=== PATIENT | female | born 1940 | race Caucasian/White ===

== ENCOUNTER 2017-07-03 15:43 | Outpatient (CLI) ==
--- NOTE | 2017-07-03 16:17 | DI ---
Exam: Two x-rays of the right hip. Comparison: None available. Reason for exam: Pain. FINDINGS: No acute fracture or malalignment. The femoral head articulates with the acetabulum. The re is mild degenerative disease with joint space narrowing. Sclerotic changes are seen in the symphy sis pubis. Impression: No acute fracture or dislocation in the right hip.
--- NOTE | 2017-07-03 16:23 | DI ---
EXAM: Lumbar spine, three view. HISTORY: Low back pain. COMPARISON: MRI dated FINDINGS: AP and lateral views of the lumbar spine and a coned down view of the lumbosacral junction .There is a transitional segment at the lumbosacral junction which has been previously labeled L6. T here is curvature spine to the left measuring 14 degrees. The vertebral heights are well maintained. There are no acute or healing fractures. There are no lytic or blastic lesions. Disc narrowing ost eophyte formation is seen at all levels of the spine. There is sclerosis of the spinous processes at all levels. There is no spondylolisthesis or spondylolysis. Heavy aortic calcifications are noted. IMPRESSION: 1. No acute fractures. 2. Degenerative disc disease. 3. Atherosclerotic disease of the aorta. 4. Scoliosis measuring 40 degrees to the left.
== END 2017-07-03 15:44 | disposition home or self-care (01) ==
LOC: RAD 15:43
PROVIDERS: ATTEND Internal Medicine
DX: M25.551 Pain in right hip (principal); M54.5 Low back pain

== ENCOUNTER 2022-05-02 09:09 | Observation (INO) ==
--- NOTE | 2022-05-02 09:21 | ED.PDOC ---
General ED Provider: Dr. GURMEET LORD MD Chief Complaint: Nausea/Vomiting Stated Complaint: Patient presents with nausea, epigastric discomfort and fever for 3 days. Denies emesis, melena, hematemesis, diarrhea, cough, dyspnea, chest pain, headache, body aches, urinary tract symptoms. Time Seen by Provider: 05/02/22 09:19 Mode of Arrival: Walk-In Information Source: Patient Primary Care Provider: LITZY WALL MD Nursing and Triage Documentation Reviewed and Agree: Yes Does patient meet sepsis criteria?: No System Inflammatory Response Syndrome: Not Applicable Sepsis Protocol: For patient's 13 years and over: Temp is 96.8 and below OR 101 and greater Pulse >90 BPM Resp >20/minute Acutely Altered Mental Status Are patient's symptoms suggestive of a new infection, such as: -Pneumonia -Skin, Soft Tissue -Endocarditis -UTI -Bone, Joint Infection -Implantable Device -Acute Abdominal Infection -Wound Infection -Meningitis -Blood Stream Catheter Infection -Unknown Review of Systems Review Of Systems Constitutional: Reports Fever Eyes: Reports No symptoms Ears, Nose, Mouth, Throat: Reports No symptoms Respiratory: Reports No symptoms Cardiac: Reports No symptoms GI: Reports Abdominal pain and Nausea : Reports No symptoms Musculoskeletal: Reports No symptoms Skin: Reports No symptoms Neurological: Reports No symptoms Endocrine: Reports No symptoms Hematologic/Lymphatic: Reports No symptoms All Other Systems: Reviewed and Negative Physical Exam Physical Exam Appearance: Reports No pain distress and Well-nourished Ill-appearing: Mild Pain Distress: None Eyes: Reports JAKY and EOMI ENT: Reports Nose normal and Oropharynx normal Neck: Supple Respiratory: Reports Airway patent, Breath sounds clear, Breath sounds equal and Other (Breath sounds decreased at both bases.) Cardiovascular: Reports RRR, No rub and No murmur GI/: Reports Soft, No masses, Bowel sounds normal, No Organomegaly and Other (Mild epigastric and RUQ tenderness.) Musculoskeletal: Reports Normal strength, ROM intact and No edema Skin: Reports Warm, Dry and Normal color Neurological: Reports Motor intact, Alert and Oriented Psychiatric: Reports Affect appropriate and Mood appropriate Interpretation Radiology Interpretation Radiology Interpretation By: Radiologist Exam Interpreted: Portable CXR (no acute cardiopulmonary findings) Re-Evaluation Re-Evaluation Time of Re-Evaluation: 11:29 Status: Improved Vital Signs Stable: Yes Pain Level: nausea and epigastric distress resolved after GI cocktail Appearance: NAD Physician Notification Case Discussed Physician Notified: Dr Wall Time of Notification: 13:36 Comments: Patient to be admitted as observation Critical Care Note Critical Care Note Total Critical Care Time (mins): 0 Course Course Hematology/Chemistry: 05/02/22 09:35 05/02/22 09:35 Orders, Labs, Meds: Lab Review 05/02/22 05/02/22 05/02/22 09:30 09:30 09:35 WBC 11.20 H RBC 3.70 L Hgb 11.0 L Hct 35.3 L MCV 95.4 MCH 29.7 MCHC 31.2 L RDW Coeff of Minal 13.0 Plt Count 505 H Immature Gran % (Auto) 0.4 Neut % (Auto) 78.9 H Lymph % (Auto) 13.4 [place] % (Auto) 6.4 Eos % (Auto) 0.4 Baso % (Auto) 0.5 Neut # (Auto) 8.8 H Lymph # (Auto) 1.5 [place] # (Auto) 0.7 Eos # (Auto) 0.0 Baso # (Auto) 0.1 Immature Gran # (Auto) 0.0 Sodium Potassium Chloride Carbon Dioxide Anion Gap BUN Creatinine Estimated GFR (MDRD) BUN/Creatinine Ratio Glucose Lactic Acid Calcium Total Bilirubin AST ALT Alkaline Phosphatase Total Protein Albumin Globulin Albumin/Globulin Ratio Lipase Procalcitonin Urine Color Urine Clarity Urine pH Ur Specific [place] Urine Protein Urine Glucose (UA) Urine Ketones Urine Blood Urine Nitrite Urine Bilirubin Urine Urobilinogen Ur Leukocyte Esterase Urine Microscopic RBC Urine Microscopic WBC Ur Squamous Epith Cells Ur Renal Epithelial Cell Urine Bacteria Influ A Molecular Assay Negative by naat Influ B Molecular Assay Negative by naat SARS CoV-2 RNA Rapid WENCESLAO Negative 05/02/22 05/02/22 05/02/22 09:35 09:35 11:15 WBC RBC Hgb Hct MCV MCH MCHC RDW Coeff of Minal Plt Count Immature Gran % (Auto) Neut % (Auto) Lymph % (Auto) [place] % (Auto) Eos % (Auto) Baso % (Auto) Neut # (Auto) Lymph # (Auto) [place] # (Auto) Eos # (Auto) Baso # (Auto) Immature Gran # (Auto) Sodium 141.1 Potassium 3.24 L Chloride 103.2 Carbon Dioxide 28.2 Anion Gap 12.94 BUN 40.3 H Creatinine 1.21 Estimated GFR (MDRD) 43.00 BUN/Creatinine Ratio 33.30 Glucose 127.3 H Lactic Acid 1.10 Calcium 12.00 H Total Bilirubin 0.42 AST 25.9 ALT 18.7 Alkaline Phosphatase 103.5 Total Protein 7.84 Albumin 4.31 Globulin 3.53 Albumin/Globulin Ratio 1.22 Lipase 57.2 Procalcitonin 0.08 Urine Color Urine Clarity Urine pH Ur Specific [place] Urine Protein Urine Glucose (UA) Urine Ketones Urine Blood Urine Nitrite Urine Bilirubin Urine Urobilinogen Ur Leukocyte Esterase Urine Microscopic RBC Urine Microscopic WBC Ur Squamous Epith Cells Ur Renal Epithelial Cell Urine Bacteria Influ A Molecular Assay Influ B Molecular Assay SARS CoV-2 RNA Rapid WENCESLAO 05/02/22 13:10 WBC RBC Hgb Hct MCV MCH MCHC RDW Coeff of Minal Plt Count Immature Gran % (Auto) Neut % (Auto) Lymph % (Auto) [place] % (Auto) Eos % (Auto) Baso % (Auto) Neut # (Auto) Lymph # (Auto) [place] # (Auto) Eos # (Auto) Baso # (Auto) Immature Gran # (Auto) Sodium Potassium Chloride Carbon Dioxide Anion Gap BUN Creatinine Estimated GFR (MDRD) BUN/Creatinine Ratio Glucose Lactic Acid Calcium Total Bilirubin AST ALT Alkaline Phosphatase Total Protein Albumin Globulin Albumin/Globulin Ratio Lipase Procalcitonin Urine Color Yellow Urine Clarity Clear Urine pH 6.0 Ur Specific [place] 1.015 Urine Protein Negative Urine Glucose (UA) Negative Urine Ketones Negative Urine Blood Negative Urine Nitrite Negative Urine Bilirubin Negative Urine Urobilinogen 0.2 Ur Leukocyte Esterase Trace H Urine Microscopic RBC 0-2 Urine Microscopic WBC 5-10 Ur Squamous Epith Cells 0-2 Ur Renal Epithelial Cell 0-2 Urine Bacteria 1+ Influ A Molecular Assay Influ B Molecular Assay SARS CoV-2 RNA Rapid WENCESLAO Orders Category Date Time Status Saline Lock [ED IV/MEDIPORT/POWERPORT] .ONCE EMERGENCY 05/02/22 10:03 Active BLOOD CULTURE (ED ONLY) Stat LAB 05/02/22 11:15 Received CBC W/ AUTO DIFF Stat LAB 05/02/22 09:35 Completed CMP [COMPREHENSIVE METABOLIC PANEL] Stat LAB 05/02/22 09:35 Completed COVID [SARS COV-2 RNA RAPID WENCESLAO] Stat LAB 05/02/22 09:30 Completed FLU A & B MOLECULAR [FLU A/B MOLECULAR] Stat LAB 05/02/22 09:30 Completed LACTIC ACID Stat LAB 05/02/22 11:15 Completed LIPASE Stat LAB 05/02/22 09:35 Completed PROCALCITONIN Stat LAB 05/02/22 09:35 Completed URINALYSIS C & S IF INDICATED Stat LAB 05/02/22 13:10 Completed URINE CULTURE Stat LAB 05/02/22 13:18 Received 0.9 % Sodium Chloride [Saline Flush] MEDS 05/02/22 10:03 Active 1 syr IVF PRN PRN Mag-Al Plus//Lidocaine [Gi Cocktail] MEDS 05/02/22 10:03 Discontinued 30 ml PO ONCE STA Ondansetron [Zofran Odt] MEDS 05/02/22 09:23 Discontinued 4 mg PO ONCE STA Pantoprazole Sodium [Protonix IV] MEDS 05/02/22 11:29 Discontinued 80 mg IVP ONCE STA Potassium Chloride [K-Dur] MEDS 05/02/22 10:03 Discontinued 40 meq PO ONCE STA Sodium Chloride 0.9% [Sodium Chloride] 1,000 ml MEDS 05/02/22 10:03 Discontinued IV BOLUS Sodium Chloride 0.9% [Sodium Chloride] 1,000 ml MEDS 05/02/22 11:55 Discontinued IV BOLUS CXR [CHEST, 1V AP ONLY] Stat RADS 05/02/22 09:23 Completed Medications Generic Name Dose Route Start Last Admin Trade Name Freq PRN Reason Stop Dose Admin Sodium Chloride 1 syr 05/02/22 10:03 05/02/22 11:50 0.9% Sodium Chloride 10 Ml Disp.Syrin IVF 1 syr PRN PRN Administration To flush IV Discontinued Medications Generic Name Dose Route Start Last Admin Trade Name Freq PRN Reason Stop Dose Admin Al Hydroxide/Mg Hydroxide 30 ml 05/02/22 10:03 05/02/22 10:38 Mag-Al Plus//Lidocaine 30 Ml Btl PO 05/02/22 10:04 30 ml ONCE STA Administration Sodium Chloride 1,000 mls @ 1,000 mls/hr 05/02/22 10:03 05/02/22 10:48 Sodium Chloride IV 05/02/22 11:02 1,000 mls/hr BOLUS STA Administration Sodium Chloride 1,000 mls @ 1,000 mls/hr 05/02/22 11:55 05/02/22 11:56 Sodium Chloride IV 05/02/22 12:54 1,000 mls/hr BOLUS STA Administration Ondansetron HCl 4 mg 05/02/22 09:23 05/02/22 09:29 Ondansetron Hcl 4 Mg Tab.Rapdis PO 05/02/22 09:24 4 mg ONCE STA Administration Pantoprazole Sodium 80 mg 05/02/22 11:29 05/02/22 11:50 Pantoprazole Sodium 40 Mg Vial IVP 05/02/22 11:30 80 mg ONCE STA Administration Potassium Chloride 40 meq 05/02/22 10:03 05/02/22 10:36 Potassium Chloride 20 Meq Tab PO 05/02/22 10:04 40 meq ONCE STA Administration Vital Signs: Temp Pulse Resp BP Pulse Ox 05/02/22 09:10 100.9 F H 112 H 18 115/75 94 L Discharge Plan Discharge Patient Disposition: PLACED OBSERVATION Discharge Problem: Nausea, Acute hypokalemia, Hypercalcemia, Gastroesophageal reflux disease, Acute dehydration Prescriptions: No Action meloxicam [Mobic] 15 mg Tablet 15 mg PO DAILY tramadol 50 mg Tablet 50 mg PO TID PRN (Reason: Moderate Pain (Scale Score 5-6)) aspirin 81 mg Tablet 81 mg PO DAILY Centrum Silver Tablet 1 tab PO DAILY Fish Oil 1,000 mg Capsule 1 cap PO DAILY valsartan-hydrochlorothiazide 320-25 mg Tablet 1 tab PO DAILY ascorbate calcium (vitamin C) [Magda-C] 500 mg Tablet 500 mg PO DAILY cranberry extract 250 mg Tablet 250 mg PO DAILY Garlique 5,000 mcg Tablet 5 mg PO DAILY calcium phosphate-vitamin D3 [Citracal-D3 Gummies] 250 mg-12.5 mcg (500 unit) Tablet,Chewable 1 tab PO DAILY Did you review [place] [employer] for ALL controlled substances?: Not Applicable ED Provider: GURMEET LORD Condition: Stable Physician Progress Note: []
[2022-05-02] MEDS ORDERED: ZOFRAN ODT PO STA (09:23)
[2022-05-02 09:41] LABS: BASOPHILS # (AUTO) 0.1 K/uL (0-0.2); BASOPHILS % (AUTO) 0.5 % (0.0-3.0); EOSINOPHILS % (AUTO) 0.4 % (0.0-7.0); HEMATOCRIT 35.3 % (37.0-47.0); IMMATURE GRANULOCYTE % (AUTO) 0.4 % (0.0-5.0); LYMPHOCYTES # (AUTO) 1.5 K/uL (0.60-3.4); LYMPHOCYTES % (AUTO) 13.4 (10.0-50.0); MEAN CORPUSCULAR HEMOGLOBIN 29.7 pg (27.0-31.0); MEAN CORPUSCULAR HGB CONC 31.2 (31.8-35.4); MEAN CORPUSCULAR VOLUME 95.4 fl (81.0-99.0); MONOCYTES # (AUTO) 0.7 K/uL (0.4-2.0); MONOCYTES % (AUTO) 6.4 (0-10); NEUTROPHILS # (AUTO) 8.8 K/ul (2.0-6.9); NEUTROPHILS % (AUTO) 78.9 % (42.2-75.2); PLATELET COUNT 505 10^3/uL (140-440)
[2022-05-02 09:57] LABS: MOLECULAR FLU A NEGATIVE BY NAAT (NEGATIVE); MOLECULAR FLU B NEGATIVE BY NAAT (NEGATIVE)
[2022-05-02 10:00] LABS: ALANINE AMINOTRANSFERASE 18.7 U/L (0-35); ALBUMIN 4.31 g/dL (3.5-5.0); ALKALINE PHOSPHATASE 103.5 U/L (53-141); ASPARTATE AMINO TRANSFERASE 25.9 U/L (14-36); BILIRUBIN,TOTAL 0.42 mg/dL (0.2-1.3); BLOOD UREA NITROGEN 40.3 mg/dL (7-17); CARBON DIOXIDE 28.2 mmol/L (22-30.0); CHLORIDE 103.2 mmol/L (98-107); CREATININE 1.21 mg/dL (0.60-1.30); GLUCOSE 127.3 mg/dL (74-106); LIPASE 57.2 U/L (23-300); POTASSIUM 3.24 mmol/L (3.5-5.1); SODIUM 141.1 mmol/L (134.5-145); TOTAL PROTEIN 7.84 g/dL (6.3-8.2)
[2022-05-02] MEDS ORDERED: SODIUM CHLORIDE 1,000 ML IV STA ×2 (10:03→11:55)
[2022-05-02] MEDS ORDERED: K-DUR PO STA (10:03)
[2022-05-02] MEDS ORDERED: GI COCKTAIL PO STA (10:03)
[2022-05-02 10:22] LABS: SARS COV-2 RNA RAPID NAAT NEGATIVE (NEGATIVE)
--- NOTE | 2022-05-02 10:35 | DI ---
EXAM: Frontal view of the chest. HISTORY: Chest pain. Fever. COMPARISON: Chest radiograph 04/10/2021. FINDINGS: Atherosclerotic calcifications of the aorta. Normal heart size. No acute consolidation. Unchanged biapical scarring. No visible pleural effusion or pneumothorax. No acute osseous abnormality. Severe degenerative changes of the left shoulder. Advanced multilevel spondylosis and scoliosis. Small hiatal hernia. IMPRESSION: No acute process. Atherosclerosis. Small hiatal hernia.
[2022-05-02] MEDS ORDERED: PROTONIX IV IVP STA (11:29)
[2022-05-02 13:16] LABS: BILIRUBIN,URINE Negative (NEGATIVE); CLARITY,URINE Clear (CLEAR); COLOR,URINE Yellow (YELLOW); GLUCOSE, URINE (UA) Negative (NEGATIVE); KETONES,URINE Negative (NEGATIVE); LEUKOCYTE ESTERASE ,URINE Trace (NEGATIVE); NITRITE,URINE Negative (NEGATIVE); PROTEIN,URINE Negative (NEGATIVE); URINE, BLOOD Negative (NEGATIVE); UROBILINOGEN,URINE 0.2 (0.2)
[2022-05-02 13:19] LABS: BACTERIA,URINE 1+ (NOT PRESENT); RENAL EPITHELIAL CELLS,URINE 0-2 (NOT PRESENT); SQUAMOUS EPITHELIAL CELL,UR 0-2 (0-5); URINE RBC, MICROSCOPIC 0-2 (0-2)
--- NOTE | 2022-05-02 13:44 | PCM ---
Chief Complaint Chief Complaint: nausea, epigastric distress History of Present Illness History of Present Illness: Patient presents with nausea, epigastric distress and fever for 3 days. She was found to be dehydrated and hypokalemic. No definitive source of infection identified;patient had temperature of 100.9 upon presentation. Review of Systems Constitutional: Reports Fever Eyes: Reports No symptoms Ears: Reports No symptoms Nose: Reports No symptoms Throat: Reports No symptoms Mouth: Reports No symptoms Respiratory: Reports No symptoms Cardiovascular: Reports No symptoms Gastrointestinal: Reports Nausea and Other (dyspepsia) Genitourinary: Reports No symptoms Neurological: Reports No symptoms Musculoskeletal: Reports No symptoms Skin: Reports No symptoms Immunology: Reports No symptoms Hematology: Reports No symptoms Endocrine: Reports No symptoms Psychiatric: Reports No symptoms Habits: Reports Tobacco use Allergies Allergies Allergy/AdvReac Type Severity Reaction Status Date / Time moxifloxacin [From Avelox] AdvReac Verified 05/02/22 09:15 Medications Medications: Medications Generic Name Dose Route Start Last Admin Trade Name Freq PRN Reason Stop Dose Admin Sodium Chloride 1 syr 05/02/22 10:03 05/02/22 11:50 0.9% Sodium Chloride 10 Ml Disp.Syrin IVF 1 syr PRN PRN Administration To flush IV Body Composition Height: 5 ft 8 in Weight: 62.233 kg Body Mass Index (BMI): 20.8 Vital Signs Temperature: 100.9 F Pulse Rate: 112 Respiratory Rate: 18 Blood Pressure: 115/75 O2 Sat by Pulse Oximetry: 94 Physical Examination Appearance: Reports Ill-appearing, No pain distress, Well-nourished and Other (Alert and in NAD.) Ill-appearing: Mild Pain Distress: None Eyes: Reports JAKY and EOMI ENT: Reports Nose normal, Oropharynx normal and Dry mucosa Neck: Supple Respiratory: Reports Airway patent, Breath sounds clear and Breath sounds equal Cardiovascular: Reports RRR, No rub and No murmur GI/: Reports Soft, No masses, Bowel sounds normal, No Organomegaly and Other (mild epigastric and RUQ tenderness) Musculoskeletal: Reports Normal strength Skin: Reports Warm, Dry and Normal color Neurological: Reports Sensation intact, Motor intact, Alert and Oriented Psychiatric: Reports Affect appropriate and Mood appropriate Lab/Tests/Diagnostic Imaging Lab/Tests/Diagnostic Imaging: Lab Review 05/02/22 05/02/22 05/02/22 09:30 09:30 09:35 WBC 11.20 H RBC 3.70 L Hgb 11.0 L Hct 35.3 L MCV 95.4 MCH 29.7 MCHC 31.2 L RDW Coeff of Minal 13.0 Plt Count 505 H Immature Gran % (Auto) 0.4 Neut % (Auto) 78.9 H Lymph % (Auto) 13.4 [place] % (Auto) 6.4 Eos % (Auto) 0.4 Baso % (Auto) 0.5 Neut # (Auto) 8.8 H Lymph # (Auto) 1.5 [place] # (Auto) 0.7 Eos # (Auto) 0.0 Baso # (Auto) 0.1 Immature Gran # (Auto) 0.0 Sodium Potassium Chloride Carbon Dioxide Anion Gap BUN Creatinine Estimated GFR (MDRD) BUN/Creatinine Ratio Glucose Lactic Acid Calcium Total Bilirubin AST ALT Alkaline Phosphatase Total Protein Albumin Globulin Albumin/Globulin Ratio Lipase Procalcitonin Urine Color Urine Clarity Urine pH Ur Specific [place] Urine Protein Urine Glucose (UA) Urine Ketones Urine Blood Urine Nitrite Urine Bilirubin Urine Urobilinogen Ur Leukocyte Esterase Urine Microscopic RBC Urine Microscopic WBC Ur Squamous Epith Cells Ur Renal Epithelial Cell Urine Bacteria Influ A Molecular Assay Negative by naat Influ B Molecular Assay Negative by naat SARS CoV-2 RNA Rapid WENCESLAO Negative 05/02/22 05/02/22 05/02/22 09:35 09:35 11:15 WBC RBC Hgb Hct MCV MCH MCHC RDW Coeff of M[place] Plt Count Immature Gran % (Auto) Neut % (Auto) Lymph % (Auto) [place] % (Auto) Eos % (Auto) Baso % (Auto) Neut # (Auto) Lymph # (Auto) [place] # (Auto) Eos # (Auto) Baso # (Auto) Immature Gran # (Auto) Sodium 141.1 Potassium 3.24 L Chloride 103.2 Carbon Dioxide 28.2 Anion Gap 12.94 BUN 40.3 H Creatinine 1.21 Estimated GFR (MDRD) 43.00 BUN/Creatinine Ratio 33.30 Glucose 127.3 H Lactic Acid 1.10 Calcium 12.00 H Total Bilirubin 0.42 AST 25.9 ALT 18.7 Alkaline Phosphatase 103.5 Total Protein 7.84 Albumin 4.31 Globulin 3.53 Albumin/Globulin Ratio 1.22 Lipase 57.2 Procalcitonin 0.08 Urine Color Urine Clarity Urine pH Ur Specific [place] Urine Protein Urine Glucose (UA) Urine Ketones Urine Blood Urine Nitrite Urine Bilirubin Urine Urobilinogen Ur Leukocyte Esterase Urine Microscopic RBC Urine Microscopic WBC Ur Squamous Epith Cells Ur Renal Epithelial Cell Urine Bacteria Influ A Molecular Assay Influ B Molecular Assay SARS CoV-2 RNA Rapid WENCESLAO 05/02/22 13:10 WBC RBC Hgb Hct MCV MCH MCHC RDW Coeff of Minal Plt Count Immature Gran % (Auto) Neut % (Auto) Lymph % (Auto) [place] % (Auto) Eos % (Auto) Baso % (Auto) Neut # (Auto) Lymph # (Auto) [place] # (Auto) Eos # (Auto) Baso # (Auto) Immature Gran # (Auto) Sodium Potassium Chloride Carbon Dioxide Anion Gap BUN Creatinine Estimated GFR (MDRD) BUN/Creatinine Ratio Glucose Lactic Acid Calcium Total Bilirubin AST ALT Alkaline Phosphatase Total Protein Albumin Globulin Albumin/Globulin Ratio Lipase Procalcitonin Urine Color Yellow Urine Clarity Clear Urine pH 6.0 Ur Specific [place] 1.015 Urine Protein Negative Urine Glucose (UA) Negative Urine Ketones Negative Urine Blood Negative Urine Nitrite Negative Urine Bilirubin Negative Urine Urobilinogen 0.2 Ur Leukocyte Esterase Trace H Urine Microscopic RBC 0-2 Urine Microscopic WBC 5-10 Ur Squamous Epith Cells 0-2 Ur Renal Epithelial Cell 0-2 Urine Bacteria 1+ Influ A Molecular Assay Influ B Molecular Assay SARS CoV-2 RNA Rapid WENCESLAO Orders Category Date Time Status Saline Lock [ED IV/MEDIPORT/POWERPORT] .ONCE EMERGENCY 05/02/22 10:03 Active BLOOD CULTURE (ED ONLY) Stat LAB 05/02/22 11:15 Received CBC W/ AUTO DIFF Stat LAB 05/02/22 09:35 Completed CMP [COMPREHENSIVE METABOLIC PANEL] Stat LAB 05/02/22 09:35 Completed COVID [SARS COV-2 RNA RAPID WENCESLAO] Stat LAB 05/02/22 09:30 Completed FLU A & B MOLECULAR [FLU A/B MOLECULAR] Stat LAB 05/02/22 09:30 Completed LACTIC ACID Stat LAB 05/02/22 11:15 Completed LIPASE Stat LAB 05/02/22 09:35 Completed PROCALCITONIN Stat LAB 05/02/22 09:35 Completed URINALYSIS C & S IF INDICATED Stat LAB 05/02/22 13:10 Completed URINE CULTURE Stat LAB 05/02/22 13:18 Received 0.9 % Sodium Chloride [Saline Flush] MEDS 05/02/22 10:03 Active 1 syr IVF PRN PRN Mag-Al Plus//Lidocaine [Gi Cocktail] MEDS 05/02/22 10:03 Discontinued 30 ml PO ONCE STA Ondansetron [Zofran Odt] MEDS 05/02/22 09:23 Discontinued 4 mg PO ONCE STA Pantoprazole Sodium [Protonix IV] MEDS 05/02/22 11:29 Discontinued 80 mg IVP ONCE STA Potassium Chloride [K-Dur] MEDS 05/02/22 10:03 Discontinued 40 meq PO ONCE STA Sodium Chloride 0.9% [Sodium Chloride] 1,000 ml MEDS 05/02/22 10:03 Disconti nued IV BOLUS Sodium Chloride 0.9% [Sodium Chloride] 1,000 ml MEDS 05/02/22 11:55 Discontinued IV BOLUS CXR [CHEST, 1V AP ONLY] Stat RADS 05/02/22 09:23 Completed Medications Generic Name Dose Route Start Last Admin Trade Name Freq PRN Reason Stop Dose Admin Sodium Chloride 1 syr 05/02/22 10:03 05/02/22 11:50 0.9% Sodium Chloride 10 Ml Disp.Syrin IVF 1 syr PRN PRN Administration To flush IV Discontinued Medications Generic Name Dose Route Start Last Admin Trade Name Freq PRN Reason Stop Dose Admin Al Hydroxide/Mg Hydroxide 30 ml 05/02/22 10:03 05/02/22 10:38 Mag-Al Plus//Lidocaine 30 Ml Btl PO 05/02/22 10:04 30 ml ONCE STA Administration Sodium Chloride 1,000 mls @ 1,000 mls/hr 05/02/22 10:03 05/02/22 10:48 Sodium Chloride IV 05/02/22 11:02 1,000 mls/hr BOLUS STA Administration Sodium Chloride 1,000 mls @ 1,000 mls/hr 05/02/22 11:55 05/02/22 11:56 Sodium Chloride IV 05/02/22 12:54 1,000 mls/hr BOLUS STA Administration Ondansetron HCl 4 mg 05/02/22 09:23 05/02/22 09:29 Ondansetron Hcl 4 Mg Tab.Rapdis PO 05/02/22 09:24 4 mg ONCE STA Administration Pantoprazole Sodium 80 mg 05/02/22 11:29 05/02/22 11:50 Pantoprazole Sodium 40 Mg Vial IVP 05/02/22 11:30 80 mg ONCE STA Administration Potassium Chloride 40 meq 05/02/22 10:03 05/02/22 10:36 Potassium Chloride 20 Meq Tab PO 05/02/22 10:04 40 meq ONCE STA Administration Assessment (1) Nausea: Status: Acute Code(s): R11.0 - Nausea SNOMED Code(s): 887097803 (2) Acute dehydration: Status: Acute Code(s): E86.0 - Dehydration SNOMED Code(s): 61744575 (3) Acute hypokalemia: Status: Acute Code(s): E87.6 - Hypokalemia SNOMED Code(s): 31770415 (4) Hypercalcemia: Status: Acute Code(s): E83.52 - Hypercalcemia SNOMED Code(s): 02946192 (5) Gastroesophageal reflux disease: Status: Acute Code(s): K21.9 - Gastro-esophageal reflux disease without esophagitis SNOMED Code(s): 315541501 Plan Plan: IV fluid rehydration. Protonix for GERD. Replenish low potassium. Observe hypercalcemia;repeat in AM.
[2022-05-02] MEDS ORDERED: TYLENOL PO PRN (14:04)
[2022-05-02] MEDS ORDERED: ULTRAM PO PRN (14:04)
[2022-05-02] MEDS: SODIUM CHLORIDE 0.9%-KCL 20 MEQ 1,000 ML IV SCH (14:26)
[2022-05-02 14:42] VITALS: BMI 20.9
[2022-05-03] MEDS: SODIUM CHLORIDE 0.9%-KCL 20 MEQ 1,000 ML IV SCH (03:18)
[2022-05-03 05:18] LABS: BASOPHILS # (AUTO) 0.1 K/uL (0-0.2); BASOPHILS % (AUTO) 0.9 % (0.0-3.0); EOSINOPHILS # (AUTO) 0.1 K/ul (0.0-0.7); EOSINOPHILS % (AUTO) 0.6 % (0.0-7.0); HEMATOCRIT 31.4 % (37.0-47.0); HEMOGLOBIN 9.5 g/dl (12.0-16.0); IMMATURE GRANULOCYTE % (AUTO) 0.4 % (0.0-5.0); LYMPHOCYTES % (AUTO) 23.9 (10.0-50.0); MEAN CORPUSCULAR HEMOGLOBIN 30.1 pg (27.0-31.0); MEAN CORPUSCULAR HGB CONC 30.3 (31.8-35.4); MEAN CORPUSCULAR VOLUME 99.4 fl (81.0-99.0); MONOCYTES # (AUTO) 0.7 K/uL (0.4-2.0); MONOCYTES % (AUTO) 8.1 (0-10); NEUTROPHILS # (AUTO) 5.4 K/ul (2.0-6.9); NEUTROPHILS % (AUTO) 66.1 % (42.2-75.2); PLATELET COUNT 405 10^3/uL (140-440); RDW COEFFICIENT OF VARIATION 13.1 % (11.6-14.8); RED BLOOD COUNT 3.16 10^6/ul (4.20-5.40); WHITE BLOOD COUNT 8.17 K/ul (4.6-10.2)
[2022-05-03 05:30] LABS: ALANINE AMINOTRANSFERASE 14.2 U/L (0-35); ALBUMIN 3.43 g/dL (3.5-5.0); ALKALINE PHOSPHATASE 76.8 U/L (53-141); ASPARTATE AMINO TRANSFERASE 21.8 U/L (14-36); BILIRUBIN,TOTAL 0.26 mg/dL (0.2-1.3); CALCIUM 9.73 mg/dL (8.4-10.2); CARBON DIOXIDE 27.3 mmol/L (22-30.0); CHLORIDE 111.9 mmol/L (98-107); CREATININE 1.1 mg/dL (0.60-1.30); GLUCOSE 92.7 mg/dL (74-106); POTASSIUM 4.22 mmol/L (3.5-5.1); SODIUM 144.5 mmol/L (134.5-145); TOTAL PROTEIN 6.31 g/dL (6.3-8.2)
[2022-05-03] MEDS ORDERED: ASPIRIN EC PO SCH (08:30)
[2022-05-03] MEDS ORDERED: DIOVAN PO SCH (09:00)
[2022-05-03] MEDS ORDERED: NON-FORMULARY MEDICATION (Aspirin 81 mg Tablet) PO SCH (09:00)
[2022-05-03] MEDS ORDERED: PROTONIX IV IVP SCH (09:00)
[2022-05-03] MEDS ORDERED: VALSARTAN HYDROCHLOROTHIAZIDE PO SCH (09:00)
[2022-05-03] MEDS ORDERED: HYDROCHLOROTHIAZIDE PO SCH (09:00)
[2022-05-03] MEDS ORDERED: MACROBID PO SCH (09:30)
[2022-05-03] MEDS ORDERED: MACRODANTIN PO SCH (10:00)
[2022-05-03 10:05] VITALS: BP 134/85; TEMP 97.5
--- NOTE | 2022-05-03 10:54 | PCM.DC ---
Final Diagnosis: Hypokalemia GERD Nausea and vomiting. Dehydration Urinary tract infection by positive cultures Physical Exam Appearance: Well-appearing Ill-appearing: None Pain Distress: None Eyes: Conjunctiva clear ENT: Nose normal and Oropharynx normal Neck: Not Examined Respiratory: Airway patent and Breath sounds clear Cardiovascular: RRR, Pulses normal and No rub GI/: Not Examined Musculoskeletal: Normal strength, ROM intact and No edema Skin: Warm, Dry and Normal color Neurological: Motor intact, Alert and Oriented Psychiatric: Affect appropriate and Mood appropriate (1) Nausea: Status: Acute Code(s): R11.0 - Nausea SNOMED Code(s): 657950510 (2) Acute dehydration: Status: Acute Code(s): E86.0 - Dehydration SNOMED Code(s): 09517794 (3) Acute hypokalemia: Status: Acute Code(s): E87.6 - Hypokalemia SNOMED Code(s): 01177607 (4) Hypercalcemia: Status: Acute Code(s): E83.52 - Hypercalcemia SNOMED Code(s): 20403213 (5) Gastroesophageal reflux disease: Status: Acute Code(s): K21.9 - Gastro-esophageal reflux disease without esophagitis SNOMED Code(s): 714746422 Reason for Hospitalization: Acute nausea and vomiting with dehydration and hypokalemia was admitted to correct electrolytes and to hydrate. Was also given Nausea medication and IV Protonix for severe gastritis. Prognosis/Condition at Discharge: Patient symtoms has revosved. she is tolorated a regular diet well. She is ready to go home. Medications at Discharge: New medications are Protonix 40mg daily , Nitrofurantoin 100mg BID x 7 days, and zofran 4mg ODT as needed for nausea. Lab/Diagnostics: Comprehensive Lab Summary 05/02/22 05/02/22 05/02/22 Range/Units 09:30 09:30 09:35 WBC 11.20 H (4.6-10.2) K/ul RBC 3.70 L (4.20-5.40) 10^6/ul Hgb 11.0 L (12.0-16.0) g/dl Hct 35.3 L (37.0-47.0) % MCV 95.4 (81.0-99.0) fl MCH 29.7 (27.0-31.0) pg MCHC 31.2 L (31.8-35.4) RDW Coeff of Minal 13.0 (11.6-14.8) % Plt Count 505 H (140-440) 10^3/uL Immature Gran % (Auto) 0.4 (0.0-5.0) % Neut % (Auto) 78.9 H (42.2-75.2) % Lymph % (Auto) 13.4 (10.0-50.0) Hall % (Auto) 6.4 (0-10) Eos % (Auto) 0.4 (0.0-7.0) % Baso % (Auto) 0.5 (0.0-3.0) % Neut # (Auto) 8.8 H (2.0-6.9) K/ul Lymph # (Auto) 1.5 (0.60-3.4) K/uL Hall # (Auto) 0.7 (0.4-2.0) K/uL Eos # (Auto) 0.0 (0.0-0.7) K/ul Baso # (Auto) 0.1 (0-0.2) K/uL Immature Gran # (Auto) 0.0 (0.0-1.0) Sodium (134.5-145) mmol/L Potassium (3.5-5.1) mmol/L Chloride (98-107) mmol/L Carbon Dioxide (22-30.0) mmol/L Anion Gap BUN (7-17) mg/dL Creatinine (0.60-1.30) mg/dL Estimated GFR (MDRD) mL/min BUN/Creatinine Ratio Glucose (74-106) mg/dL Lactic Acid (0.7-2.1) mmol/L Calcium (8.4-10.2) mg/dL Total Bilirubin (0.2-1.3) mg/dL AST (14-36) U/L ALT (0-35) U/L Alkaline Phosphatase (53-141) U/L Total Protein (6.3-8.2) g/dL Albumin (3.5-5.0) g/dL Globulin Albumin/Globulin Ratio Lipase (23-300) U/L Procalcitonin (0.09) ng/mL Urine Color (YELLOW) Urine Clarity (CLEAR) Urine pH (5-9) Ur Specific [place] (1.005-1.030) Urine Protein (NEGATIVE) Urine Glucose (UA) (NEGATIVE) Urine Ketones (NEGATIVE) Urine Blood (NEGATIVE) Urine Nitrite (NEGATIVE) Urine Bilirubin (NEGATIVE) Urine Urobilinogen (0.2) Ur Leukocyte Esterase (NEGATIVE) Urine Microscopic RBC (0-2) Urine Microscopic WBC (0-2) Ur Squamous Epith Cells (0-5) Ur Renal Epithelial Cell (NOT PRESENT) Urine Bacteria (NOT PRESENT) Influ A Molecular Assay Negative by naat (NEGATIVE) Influ B Molecular Assay Negative by naat (NEGATIVE) SARS CoV-2 RNA Rapid WENCESLAO Negative (NEGATIVE) 05/02/22 05/02/22 05/02/22 Range/Units 09:35 09:35 11:15 WBC (4.6-10.2) K/ul RBC (4.20-5.40) 10^6/ul Hgb (12.0-16.0) g/dl Hct (37.0-47.0) % MCV (81.0-99.0) fl MCH (27.0-31.0) pg MCHC (31.8-35.4) RDW Coeff of Minal (11.6-14.8) % Plt Count (140-440) 10^3/uL Immature Gran % (Auto) (0.0-5.0) % Neut % (Auto) (42.2-75.2) % Lymph % (Auto) (10.0-50.0) Hall % (Auto) (0-10) Eos % (Auto) (0.0-7.0) % Baso % (Auto) (0.0-3.0) % Neut # (Auto) (2.0-6.9) K/ul Lymph # (Auto) (0.60-3.4) K/uL Hall # (Auto) (0.4-2.0) K/uL Eos # (Auto) (0.0-0.7) K/ul Baso # (Auto) (0-0.2) K/uL Immature Gran # (Auto) (0.0-1.0) Sodium 141.1 (134.5-145) mmol/L Potassium 3.24 L (3.5-5.1) mmol/L Chloride 103.2 (98-107) mmol/L Carbon Dioxide 28.2 (22-30.0) mmol/L Anion Gap 12.94 BUN 40.3 H (7-17) mg/dL Creatinine 1.21 (0.60-1.30) mg/dL Estimated GFR (MDRD) 43.00 mL/min BUN/Creatinine Ratio 33.30 Glucose 127.3 H (74-106) mg/dL Lactic Acid 1.10 (0.7-2.1) mmol/L Calcium 12.00 H (8.4-10.2) mg/dL Total Bilirubin 0.42 (0.2-1.3) mg/dL AST 25.9 (14-36) U/L ALT 18.7 (0-35) U/L Alkaline Phosphatase 103.5 (53-141) U/L Total Protein 7.84 (6.3-8.2) g/dL Albumin 4.31 (3.5-5.0) g/dL Globulin 3.53 Albumin/Globulin Ratio 1.22 Lipase 57.2 (23-300) U/L Procalcitonin 0.08 (0.09) ng/mL Urine Color (YELLOW) Urine Clarity (CLEAR) Urine pH (5-9) Ur Specific [place] (1.005-1.030) Urine Protein (NEGATIVE) Urine Glucose (UA) (NEGATIVE) Urine Ketones (NEGATIVE) Urine Blood (NEGATIVE) Urine Nitrite (NEGATIVE) Urine Bilirubin (NEGATIVE) Urine Urobilinogen (0.2) Ur Leukocyte Esterase (NEGATIVE) Urine Microscopic RBC (0-2) Urine Microscopic WBC (0-2) Ur Squamous Epith Cells (0-5) Ur Renal Epithelial Cell (NOT PRESENT) Urine Bacteria (NOT PRESENT) Influ A Molecular Assay (NEGATIVE) Influ B Molecular Assay (NEGATIVE) SARS CoV-2 RNA Rapid WENCESLAO (NEGATIVE) 05/02/22 05/03/22 05/03/22 Range/Units 13:10 04:59 04:59 WBC 8.17 (4.6-10.2) K/ul RBC 3.16 L (4.20-5.40) 10^6/ul Hgb 9.5 L (12.0-16.0) g/dl Hct 31.4 L (37.0-47.0) % MCV 99.4 H (81.0-99.0) fl MCH 30.1 (27.0-31.0) pg MCHC 30.3 L (31.8-35.4) RDW Coeff of Minal 13.1 (11.6-14.8) % Plt Count 405 (140-440) 10^3/uL Immature Gran % (Auto) 0.4 (0.0-5.0) % Neut % (Auto) 66.1 (42.2-75.2) % Lymph % (Auto) 23.9 (10.0-50.0) Hall % (Auto) 8.1 (0-10) Eos % (Auto) 0.6 (0.0-7.0) % Baso % (Auto) 0.9 (0.0-3.0) % Neut # (Auto) 5.4 (2.0-6.9) K/ul Lymph # (Auto) 2.0 (0.60-3.4) K/uL Hall # (Auto) 0.7 (0.4-2.0) K/uL Eos # (Auto) 0.1 (0.0-0.7) K/ul Baso # (Auto) 0.1 (0-0.2) K/uL Immature Gran # (Auto) 0.0 (0.0-1.0) Sodium 144.5 (134.5-145) mmol/L Potassium 4.22 (3.5-5.1) mmol/L Chloride 111.9 H (98-107) mmol/L Carbon Dioxide 27.3 (22-30.0) mmol/L Anion Gap 9.52 BUN 30.0 H (7-17) mg/dL Creatinine 1.10 (0.60-1.30) mg/dL Estimated GFR (MDRD) 48.00 mL/min BUN/Creatinine Ratio 27.27 Glucose 92.7 (74-106) mg/dL Lactic Acid (0.7-2.1) mmol/L Calcium 9.73 (8.4-10.2) mg/dL Total Bilirubin 0.26 (0.2-1.3) mg/dL AST 21.8 (14-36) U/L ALT 14.2 (0-35) U/L Alkaline Phosphatase 76.8 D (53-141) U/L Total Protein 6.31 (6.3-8.2) g/dL Albumin 3.43 L (3.5-5.0) g/dL Globulin 2.88 Albumin/Globulin Ratio 1.19 Lipase (23-300) U/L Procalcitonin (0.09) ng/mL Urine Color Yellow (YELLOW) Urine Clarity Clear (CLEAR) Urine pH 6.0 (5-9) Ur Specific [place] 1.015 (1.005-1.030) Urine Protein Negative (NEGATIVE) Urine Glucose (UA) Negative (NEGATIVE) Urine Ketones Negative (NEGATIVE) Urine Blood Negative (NEGATIVE) Urine Nitrite Negative (NEGATIVE) Urine Bilirubin Negative (NEGATIVE) Urine Urobilinogen 0.2 (0.2) Ur Leukocyte Esterase Trace H (NEGATIVE) Urine Microscopic RBC 0-2 (0-2) Urine Microscopic WBC 5-10 (0-2) Ur Squamous Epith Cells 0-2 (0-5) Ur Renal Epithelial Cell 0-2 (NOT PRESENT) Urine Bacteria 1+ (NOT PRESENT) Influ A Molecular Assay (NEGATIVE) Influ B Molecular Assay (NEGATIVE) SARS CoV-2 RNA Rapid WENCESLAO (NEGATIVE) 05/02/22 13:18 Urine,Random Urine Culture - Preliminary Education Provided to Patient and Family: to get prescription filled and take medications as prescribed. Follow-ups: in 1 week with PCP Discharge Disposition: Home Hospital Course: Symptoms Resolved after the above intervention. Plan: Discharge home.
[2022-05-03] MEDS ORDERED: PREVNAR 20 SYRINGE IM ONE (11:27)
== END 2022-05-03 12:20 | disposition home or self-care (01) ==
LOC: MEDSURG A 09:09 → ED 09:09 → MEDSURG A 14:15
PROVIDERS: ADMIT Surgery; ATTEND Internal Medicine Geriatric Medicine
DX: K29.70 Gastritis, unspecified, without bleeding; E87.6 Hypokalemia; I70.90 Unspecified atherosclerosis; E83.52 Hypercalcemia; R07.9 Chest pain, unspecified; Z20.822 Contact with and (suspected) exposure to COVID-19; K21.9 Gastro-esophageal reflux disease without esophagitis; B95.2 Enterococcus as the cause of diseases classified elsewhere; N39.0 Urinary tract infection, site not specified; E86.0 Dehydration